=== PATIENT | female | born 1985 | race Caucasian/White ===

== ENCOUNTER 2025-05-07 17:53 | Emergency (ER) | payer OTHER ==
[~2025-05-07] VITALS: Ht 177.8 cm; Wt 80.6 kg
[~2025-05-07 17:53] MED LIST: ADVIL200 M1 PO; FE C TABLET1 EACH PO; IRON325 M1 PO; MACROBID 100 M100 MG PO; PAROXETINE HCL20 MG PO; PREDNISONE20 MG PO; TRAMADOL HCL50 MG PO; ZOFRAN ODT4 MG SL
[2025-05-07] MEDS ORDERED: KETOROLAC TROMETHAMINE 30 MG/ML VIAL IV ONE (19:45)
[2025-05-07] MEDS ORDERED: LACTATED RINGER'S 1,000 ML IV ONE (19:45)
[2025-05-07 19:47] LABS: BLOOD/HGB, URINE NEGATIVE (Negative); KETONE, URINE NEGATIVE (Negative); LEUK ESTERASE, URINE NEGATIVE (negative); NITRITE, URINE NEGATIVE (negative)
[2025-05-07 19:55] LABS: BASOPHILS 0.6 % (0.1-1.2); EOSINOPHILS 1.1 % (0.7-5.8); LYMPHOCYTES 27.5 % (19.3-51.7); MCH 32.3 PG (25.6-32.2); MCHC 33.9 g/dL (32.2-35.5); MCV 95.2 fL (79.4-94.8); MONOCYTES 7.0 % (4.7-12.5); NEUTROPHILS 63.5 % (34.0-71.1); RBC 3.99 M/uL (3.93-5.22)
[2025-05-07 20:17] LABS: ALT (SGPT) 18.0 U/L (14-59); AST (SGOT) 13.0 U/L (15-37); GLOMERULAR FILTRATION RATE,EST 108.0 mL/min (>60); PROTEIN, TOTAL 7.2 g/dL (6.4-8.2); UREA NITROGEN 9.0 mg/dL (7-18)
[2025-05-07 22:42] VITALS: BP 145/98
== END 2025-05-07 22:43 | disposition home or self-care (01) ==
LOC: ED 17:53
PROVIDERS: Internal Medicine
DX: R10.22 Pelvic and perineal pain left side (principal); Z79.899 Other long term (current) drug therapy; Z88.2 Allergy status to sulfonamides
CPT/HCPCS: 36415; 76830; 76856; 80053; 81003; 83690; 84703; 85025; 96374; 99284-25; J1885; J7121